=== PATIENT | male | born 1975 | race American Indian/Alaskan Native ===

== ENCOUNTER 2022-01-12 11:28 | Inpatient (IN) | payer SELFPAY ==
--- NOTE | 2022-01-12 12:20 | XRay Report ---
XR chest routine 2V INDICATION / CLINICAL INFORMATION: Chest Pain. COMPARISON: None available. FINDINGS: SUPPORT DEVICES: None. HEART /PULMONARY VASCULATURE: No significant abnormality. LUNGS / PLEURA: No significant pulmonary or pleural abnormality. No pneumothorax. ADDITIONAL FINDINGS: No significant additional findings. IMPRESSION: 1. No acute findings. Signer Name: Max Chavez MD Signed: 01/12/2022 12:16 PM Workstation Name: [facility]
[2022-01-12 12:58] LABS: Basophils % (Auto) 0.5 % (0.0-1.8); Eosinophils # (Auto) 0.1 K/mm3 (0.0-0.4); Hematocrit 42.1 % (35.5-45.6); Hemoglobin 14.4 gm/dl (11.8-15.2); Lymphocytes # (Auto) 2.3 K/mm3 (1.2-5.4); Lymphocytes % (Auto) 22.3 % (13.4-35.0); Mean Corpuscular HGB Conc 34 % (32-34); Mean Corpuscular Volume 91 fl (84-94); Monocytes # (Auto) 0.5 K/mm3 (0.0-0.8); Monocytes % (Auto) 5.2 % (0.0-7.3); Platelet Count 297 K/mm3 (140-440); Red Blood Count 4.64 M/mm3 (3.65-5.03); Red Cell Distribution Width 13.6 % (13.2-15.2)
[2022-01-12 13:26] LABS: Alanine Aminotransferase 18 units/L (7-56); BUN/Creatinine Ratio 14; Blood Urea Nitrogen 18 mg/dL (9-20); Calcium 9.6 mg/dL (8.4-10.2); Hemolysis Index 5
--- NOTE | 2022-01-12 13:36 | Event Note ---
ED Screening Note ED Screening Note: charge nurse Cindy aware of elevated trop This initial assessment/diagnostic orders/clinical plan/treatment(s) is/are subject to change based on patients health status, clinical progression and re- assessment by fellow clinical providers in the ED. Further treatment and workup at subsequent clinical providers discretion. Patient/guardian urged not to elope from the ED as their condition may be serious if not clinically assessed and managed. Initial orders include:
--- NOTE | 2022-01-12 13:36 | Event Note ---
Date: 01/12/22 Call received from Chelsea, garden labourer. This patient is in the waiting room and had protocol lab orders placed by triage nurse. Per her verbal report, pt's trop is 0.232. 13:31: I informed conveyor line battery charger, Cindy, of this. Pt will need to be immediately placed in the main ER for evaluation by a physician.
[2022-01-12 13:44] LABS: Chol/HDL Ratio 7.39 %; HDL Cholesterol 33 mg/dL (40-59); LDL Cholesterol,Direct 169 mg/dL (50-130)
[2022-01-12] MEDS ORDERED: SODIUM CHLORIDE 0.9% 1000 ML 1,000 ML IV ONE (13:57)
[2022-01-12] MEDS ORDERED: ASPIRIN 325 MG TAB PO ONE (13:57)
[2022-01-12] MEDS ORDERED: NITROGLYCERIN 2% OINT 1 GM TP ONE (13:57)
[2022-01-12] MEDS ORDERED: MORPHINE 4 MG/1 ML INJ IV ONE (13:58)
[2022-01-12] MEDS ORDERED: ONDANSETRON 4 MG/2 ML INJ IV ONE (13:58)
[2022-01-12 15:21] LABS: INR 0.8 (0.87-1.13)
--- NOTE | 2022-01-12 16:08 | History and Physical Report ---
History of Present Illness Chief complaint: My chest hurts History of present illness: 46 YO Male with DM, Obesity hypoventilation Syndrome, HLD, HTN, Metabolic Syndrome presents ED for evaluation. Patient reports "my chest hurts". Patient states he experienced a sudden onset of chest pain in approximately 100 hours this morning. Patient states that pain was 6/10, intermittent, nonradiating, substernal, crushing in nature, worsened with exertion, relieved with rest. EMS was notified and upon arrival the patient was found to be in distress and subsequently transported to [facility] for further care and evaluation of the aforementioned symptoms. The patient was seen and evaluated in the emergency department. All lab and imaging studies reviewed. Patient found to have clinical symptoms consistent with angina at rest, as well as lab finding consistent with NSTEMI, as well as diastolic CHF. Patient admitted to telemetry and initiated on ACS protocol. Cardiology team consulted in ED. Patient denies fever, chills, productive cough, skin rash, recent contact, unilateral leg swelling, calf pain, prolonged travel, individual/family history of DVT/PE/bleeding/blood clotting disorders, or known exposure to COVID-19. No prior admission for review. All medication listed at time of admission has been reconciled. Advanced care planning conducted in ED. Past History Past Medical History: diabetes, hypertension, hyperlipidemia, other (See HPI) Past Surgical History: No surgical history, Other (Reviewed) Social history: , lives with family Family history: diabetes, hypertension Medications and Allergies Allergies Allergy/AdvReac Type Severity Reaction Status Date / Time No Known Allergies Allergy Verified 01/12/22 11:55 Home Medications Medication Instructions Recorded Confirmed Last Taken Type Aspirin [Aspirin BABY CHEW TAB] 81 mg PO DAILY 07/07/14 07/07/14 Unknown History Atorvastatin [Lipitor] 0 mg PO DAILY 07/07/14 07/07/14 Unknown History labetaloL [Labetalol 100mg TAB] 0 mg PO DAILY 07/07/14 07/07/14 Unknown History metFORMIN [Glucophage] 0 mg PO DAILY 07/07/14 07/07/14 Unknown History Review of Systems Constitutional: no weight loss, no weight gain, no fever, no chills Ears, nose, mouth and throat: no ear pain, no ear discharge, no decreased hearing, no nose pain, no nasal discharge Cardiovascular: chest pain, dyspnea on exertion, high blood pressure, decreased exercise tolerance, no palpitations, no rapid/irregular heart beat Respiratory: no cough, no cough with sputum, no excessive sputum, no hemoptysis Gastrointestinal: no abdominal pain, no nausea, no vomiting, no diarrhea, no constipation Genitourinary Male: no hematuria, no flank pain, no discharge, no urinary frequency, no urinary hesitancy Rectal: no pain, no incontinence, no bleeding Musculoskeletal: no neck stiffness, no neck pain, no shooting arm pain, no arm numbness/tingling, no shooting leg pain, no leg numbness/tingling, no redness of joints Integumentary: no rash, no pruritis, no redness, no sores, no wounds Neurological: no head injury, no transient paralysis, no paralysis, no weakness, no parathesias, no numbness, no tingling Psychiatric: no anxiety, no memory loss, no change in sleep habits, no sleep disturbances, no insomnia, no hypersomnia, no change in appetite Endocrine: no cold intolerance, no heat intolerance, no polyphagia, no excessive thirst, no polydipsia, no polyuria Hematologic/Lymphatic: no easy bruising, no easy bleeding, no lymphedema Allergic/Immunologic: no urticaria, no allergic rhinitis, no wheezing, no persistent infections Exam - Constitutional Vitals: Temp Pulse Resp BP Pulse Ox 98.2 F 65 16 180/100 97 01/12/22 11:39 01/12/22 11:39 01/12/22 11:39 01/12/22 11:39 01/12/22 11:39 General appearance: Present: mild distress, obese - EENT Eyes: Present: PERRL ENT: hearing intact, clear oral mucosa - Neck Neck: Present: supple, normal ROM - Respiratory Respiratory effort: normal Respiratory: bilateral: CTA - Cardiovascular Heart Sounds: Present: S1 & S2. Absent: rub, click - Extremities Extremities: pulses symmetrical, No edema Peripheral Pulses: within normal limits - Abdominal General gastrointestinal: Present: soft, non-tender, non-distended, normal bowel sounds Male genitourinary: Present: normal - Integumentary Integumentary: Present: clear, warm, dry - Musculoskeletal Musculoskeletal: gait normal, strength equal bilaterally - Psychiatric Psychiatric: appropriate mood/affect, intact judgment & insight - Neurologic Neurologic: CNII-XII intact, moves all extremities HEART Score - HEART Score Troponin: Troponin T 0.232 ng/mL (0.00-0.029) H* 01/12/22 12:17 Results - Labs CBC & Chem 7: 01/12/22 12:17 01/12/22 12:17 Labs: Abnormal lab results 01/12/22 01/12/22 01/12/22 Range/Units 12:17 12:17 14:34 Seg Neutrophils % 71.0 H (40.0-70.0) % PT 12.1 L (12.2-14.9) Sec. INR 0.80 L (0.87-1.13) Sodium 132 L (137-145) mmol/L Chloride 96.3 L (98-107) mmol/L Glucose 391 H (75-100) mg/dL Troponin T 0.232 H* (0.00-0.029) ng/mL Triglycerides 391 H (2-149) mg/dL Cholesterol 244 H (50-199) mg/dL LDL Cholesterol Direct 169 H (50-130) mg/dL HDL Cholesterol 33 L (40-59) mg/dL Assessment and Plan - Patient Problems (1) NSTEMI (non-ST elevated myocardial infarction) Current Visit: Yes Status: Acute Plan to address problem: ACS protocol: Serial cardiac enzymes, EKG, telemetry monitoring, cardiology team consulted in ED, echocardiogram ordered and pending at time of admission, morphine, submental oxygen, nitro, aspirin, (2) Angina at rest Current Visit: Yes Status: Acute Plan to address problem: ACS protocol: Serial cardiac enzymes, EKG, telemetry monitoring, morphine, submental oxygen, nitro, aspirin, cardiology team consulted. Further care and evaluation as per cardiology team. (3) Diastolic CHF Current Visit: Yes Status: Acute Qualifiers: Heart failure chronicity: acute Qualified Code(s): I50.31 - Acute diastolic (congestive) heart failure Plan to address problem: Strict I's and O, monitoring output every shift, daily weight, afterload reduction, blood pressure control, echocardiogram ordered and pending at time of admission. (4) Obesity hypoventilation syndrome Current Visit: Yes Status: Acute Plan to address problem: Balanced diet, increase physical activity discharge, outpatient pulmonary follow -up for sleep study. (5) Hypertension Current Visit: Yes Status: Acute Qualifiers: Hypertension type: primary hypertension Qualified Code(s): I10 - Essential (primary) hypertension Plan to address problem: Monitor blood pressure every shift, continue medical management. (6) Diabetes Current Visit: Yes Status: Acute Plan to address problem: Consistent carbohydrate diet, Accu-Chek, insulin protocol, hypoglycemia protocol. (7) Metabolic syndrome Current Visit: Yes Status: Acute Plan to address problem: Balanced diet, low-cholesterol diet, weight reduction, blood glucose control, (8) DVT prophylaxis Current Visit: Yes Status: Acute Plan to address problem: SCDs bilateral lower extremities while in bed (9) Advance care planning Current Visit: Yes Status: Acute Plan to address problem: Disease education conducted, care plan discussed, diagnosis discussed, prognosis discussed, patient is full code. Patient knowledges understanding and agreement with care plan, +30 minutes. (10) Preventative health care Current Visit: Yes Status: Acute Plan to address problem: Patient counseled regarding weight reduction, risk factor reduction, outpatient follow-up with primary care physician for all age and risk factor appropriate screening test. +30 minutes.
[2022-01-12] MEDS ORDERED: NITROGLYCERIN 0.4 MG TAB SUBL SL PRN (16:09)
[2022-01-12] MEDS ORDERED: ASPIRIN 81 MG TAB CHEW PO STA (16:09)
[2022-01-12] MEDS ORDERED: MORPHINE 4 MG/1 ML INJ IV PRN (16:09)
[2022-01-12] MEDS ORDERED: ONDANSETRON 4 MG/2 ML INJ IV PRN (16:09)
[2022-01-12] MEDS ORDERED: traMADol 50 MG TAB PO PRN (16:09)
[2022-01-12] MEDS ORDERED: oxyCODONE /ACETAMINOPHEN 5-325MG TAB PO PRN (16:09)
[2022-01-12] MEDS ORDERED: ALBUTEROL 2.5 MG/3 ML NEBU IH PRN (16:09)
[2022-01-12] MEDS ORDERED: ACETAMINOPHEN 325 MG TAB PO PRN ×2 (16:09)
--- NOTE | 2022-01-12 16:11 | Emergency Department Report ---
ED Chest Pain HPI - General Chief Complaint: Chest Pain Stated Complaint: CHEST PAIN PUI?: No Time Seen by Provider: 01/12/22 13:55 Source: EMS Mode of arrival: Stretcher Limitations: No Limitations - History of Present Illness Initial Comments: pt reports chest pain since approx 1100 this morning. nonradiating, sternal, describes as achey. pt takes asa daily MD Complaint: chest pain -: Gradual, hour(s) Pain Radiation: none Severity scale (0 -10): 0 Improves With: nothing Worsens With: nothing Treatments Prior to Arrival: none - Related Data Home Medications Medication Instructions Recorded Confirmed Last Taken Aspirin [Aspirin BABY CHEW TAB] 81 mg PO DAILY 07/07/14 07/07/14 Unknown Atorvastatin [Lipitor] 0 mg PO DAILY 07/07/14 07/07/14 Unknown labetaloL [Labetalol 100mg TAB] 0 mg PO DAILY 07/07/14 07/07/14 Unknown metFORMIN [Glucophage] 0 mg PO DAILY 07/07/14 07/07/14 Unknown Allergies Allergy/AdvReac Type Severity Reaction Status Date / Time No Known Allergies Allergy Verified 01/12/22 11:55 Heart Score - HEART Score History: Moderately suspicious EKG: Significant ST-depression Age: < 45 Risk factors: > 3 risk factors or hx of atherosclerotic disease Troponin: 1-3x normal limit HEART Score: 6 - EKG Read Time Time EKG Completed: 16:11 EKG Read Time: 16:11 - Critical Actions Critical Actions: 4-6 pts:12-16.6% risk of adverse cardiac event. Should be admitted ED Review of Systems ROS: Stated complaint: CHEST PAIN Other details as noted in HPI Constitutional: denies: chills, fever Eyes: denies: eye pain, eye discharge, vision change ENT: denies: ear pain, throat pain Respiratory: denies: cough, shortness of breath, wheezing Cardiovascular: denies: chest pain, palpitations Endocrine: no symptoms reported Gastrointestinal: denies: abdominal pain, nausea, diarrhea Genitourinary: denies: urgency, dysuria Musculoskeletal: denies: back pain, joint swelling, arthralgia Skin: denies: rash, lesions Neurological: denies: headache, weakness, paresthesias Psychiatric: denies: anxiety, depression Hematological/Lymphatic: denies: easy bleeding, easy bruising ED Past Medical Hx - Past Medical History Hx Hypertension: Yes - Social History Smoking Status: Current Every Day Smoker Substance Use Type: None - Medications Home Medications: Home Medications Medication Instructions Recorded Confirmed Last Taken Type Aspirin [Aspirin BABY CHEW TAB] 81 mg PO DAILY 07/07/14 07/07/14 Unknown History Atorvastatin [Lipitor] 0 mg PO DAILY 07/07/14 07/07/14 Unknown History labetaloL [Labetalol 100mg TAB] 0 mg PO DAILY 07/07/14 07/07/14 Unknown History metFORMIN [Glucophage] 0 mg PO DAILY 07/07/14 07/07/14 Unknown History ED Physical Exam - General Limitations: No Limitations General appearance: alert, in no apparent distress - Head Head exam: Present: atraumatic, normocephalic - Eye Eye exam: Present: normal appearance - ENT ENT exam: Present: mucous membranes moist - Neck Neck exam: Present: normal inspection - Respiratory Respiratory exam: Present: normal lung sounds bilaterally. Absent: respiratory distress - Cardiovascular Cardiovascular Exam: Present: regular rate, normal rhythm. Absent: systolic murmur, diastolic murmur, rubs, gallop - GI/Abdominal GI/Abdominal exam: Present: soft, normal bowel sounds - Rectal Rectal exam: Present: deferred - Extremities Exam Extremities exam: Present: normal inspection - Back Exam Back exam: Present: normal inspection - Neurological Exam Neurological exam: Present: alert, oriented X3 - Psychiatric Psychiatric exam: Present: normal affect, normal mood - Skin Skin exam: Present: warm, dry, intact, normal color. Absent: rash ED Course Vital Signs 01/12/22 11:39 Temperature 98.2 F Pulse Rate 65 Respiratory 16 Rate Blood Pressure 180/100 [Left] O2 Sat by Pulse 97 Oximetry TELMA score - Telma Score Age > 65: (0) No Aspirin use within the Past 7 Days: (1) Yes 3 or more CAD Risk Factors: (1) Yes 2 or more Angina events in past 24 hrs: (0) No Known CAD with more than 50% Stenosis: (0) No Elevated Cardiac Markers: (1) Yes ST Deviation Greater than 0.5mm: (1) Yes TELMA Score: 4 ED Medical Decision Making - Lab Data Result diagrams: 01/12/22 12:17 01/12/22 12:17 - EKG Data -: EKG Interpreted by Ia EKG shows normal: sinus rhythm Rate: normal - EKG Data Interpretation: nonspecific ST-T wave leoncio - Radiology Data Radiology results: report reviewed, image reviewed - Medical Decision Making work up showed elevated trop 0.232 asprin and nitro given Critical care attestation.: If time is entered above; I have spent that time in minutes in the direct care of this critically ill patient, excluding procedure time. ED Disposition Clinical Impression: NSTEMI (non-ST elevated myocardial infarction), Chest pain Disposition: ADMITTED INPATIENT Is pt being admited?: Yes Does the pt Need Aspirin: Yes Condition: Stable Instructions: Nonspecific Chest Pain, Adult Referrals: PRIMARY CARE, [Primary Care Provider] - 3-5 Days
[2022-01-12 16:12] LABS: Creatine Kinase MB 8.6 ng/mL (0.0-4.0)
[2022-01-12] MEDS ORDERED: DEXTROSE 50% IN WATER (25GM) 50 ML SYRINGE IV PRN (16:13)
[2022-01-12] MEDS: INSULIN REGULAR, HUMAN 100 UNITS/1 ML SUB-Q SCH ×2 (16:43→22:00)
[2022-01-12 20:49] LABS: Bacteria,Urine 1+ /HPF (Negative); WBC,Urine < 1.0 /HPF (0.0-6.0)
[2022-01-12 20:55] LABS: Bilirubin,Urine Negative (Negative); Color,Urine Yellow (Yellow)
[2022-01-12 20:56] LABS: Blood,Urine Negative (Negative); Urobilinogen,Urine < 2.0 mg/dL (<2.0)
[2022-01-12 21:12] LABS: Amphetamine Screen,Urine PRESUMPTIVE NEGATIVE; Benzodiazepines Screen,Urine PRESUMPTIVE NEGATIVE; Cannabinoid Screen,Urine PRESUMPTIVE NEGATIVE; Cocaine Screen,Urine PRESUMPTIVE NEGATIVE; Methadone Screen,Urine PRESUMPTIVE NEGATIVE; Opiate Screen,Urine PRESUMPTIVE POSITIVE
[2022-01-12] MEDS: FAMOTIDINE 20 MG TAB PO SCH (22:00)
[2022-01-13] MEDS ORDERED: HEPARIN 10,000 UNITS/10 ML VIAL IV PRN (03:11)
[2022-01-13] MEDS ORDERED: HEPARIN 10,000 UNITS/10 ML VIAL IV ONE ×2 (03:11→03:20)
[2022-01-13] MEDS ORDERED: HEPARIN/ 0.45% NACL DRIP 25,000 UNIT/500 ML BAG IV SCH (04:00)
[2022-01-13 06:48] LABS: INR 0.84 (0.87-1.13)
[2022-01-13 06:49] LABS: Partial Thromboplastin Time 40.7 Sec. (24.2-36.6)
[2022-01-13 06:59] LABS: BUN/Creatinine Ratio 14; Blood Urea Nitrogen 17 mg/dL (9-20); Calcium 9.2 mg/dL (8.4-10.2); Hemolysis Index 41
[2022-01-13] MEDS: INSULIN REGULAR, HUMAN 100 UNITS/1 ML SUB-Q SCH ×4 (08:38→21:38)
[2022-01-13] MEDS: FAMOTIDINE 20 MG TAB PO SCH ×2 (10:26→21:37)
--- NOTE | 2022-01-13 10:31 | Consultation ---
History of Present Illness Consult date: 01/13/22 Consult reason: chest pain, elevated troponin History of present illness: Patient is a 46-year-old man with a history of coronary artery disease and chronic hypertension. He reports that 8 years ago, he underwent coronary stenting at [facility] for acute coronary syndrome, and since then has maintained follow-up with [facility]. The last time he saw them was about a year ago. Comorbidities include chronic tobacco abuse, continues to smoke cigarettes. He presents to the hospital at this time with chest pain. In the emergency room, his ECG was abnormal, demonstrated QS complexes of an old anterolateral infarct, but associated with a deep T wave inversions. Was admitted with a diagnosis of a non-ST elevation myocardial infarction, and cardiology consultation was requested for further management. Past History Past Medical History: CAD, diabetes, hypertension, hyperlipidemia, other (Tobacco abuse) Past Surgical History: No surgical history, PTCA Social history: , lives with family Family history: diabetes, hypertension Medications and Allergies Allergies Allergy/AdvReac Type Severity Reaction Status Date / Time No Known Allergies Allergy Verified 01/12/22 11:55 Home Medications Medication Instructions Recorded Confirmed Last Taken Type Aspirin [Aspirin BABY CHEW TAB] 81 mg PO DAILY 07/07/14 01/12/22 Unknown History Atorvastatin [Lipitor] 0 mg PO DAILY 07/07/14 01/12/22 Unknown History labetaloL [Labetalol 100mg TAB] 0 mg PO DAILY 07/07/14 01/12/22 Unknown History metFORMIN [Glucophage] 0 mg PO DAILY 07/07/14 01/12/22 Unknown History Losartan [Cozaar] 25 mg PO QDAY 01/12/22 01/12/22 Unknown History carvediloL [Coreg] 25 mg PO BID 01/12/22 01/12/22 Unknown History Active Meds: Active Medications Acetaminophen (Acetaminophen 325 Mg Tab) 650 mg PO Q6H PRN PRN Reason: Pain, Mild (1-3) Albuterol (Albuterol 2.5 Mg/3 Ml Nebu) 2.5 mg IH Q4HRT PRN PRN Reason: Shortness Of Breath Atorvastatin Calcium (Atorvastatin 40 Mg Tab) 40 mg PO QHS BERYL Last Admin: 01/12/22 22:00 Dose: Not Given Dextrose (Dextrose 50% In Water (25gm) 50 Ml Syringe) 50 ml IV Q30MIN PRN; Protocol PRN Reason: Hypoglycemia Famotidine (Famotidine 20 Mg Tab) 20 mg PO BID [facility] Last Admin: 01/13/22 10:26 Dose: 20 mg Heparin Sodium/Sodium Chloride (Heparin/ 0.45% Nacl-25,000 Unit/500 Ml) 25,000 unit in 500 mls @ 20 mls/hr IV TITRATE BERYL; Protocol Last Admin: 01/13/22 03:33 Dose: 1,000 units/hr, 20 mls/hr Sodium Chloride (Nacl 0.9% 500 Ml) 500 mls @ 50 mls/hr IV DIRECT BERYL Stop: 01/13/22 20:59 Insulin Human Regular (Insulin Regular, Human 100 Units/1 Ml) 0 units SUB-Q ACHS [facility]; Protocol Last Admin: 01/13/22 08:38 Dose: Not Given Morphine Sulfate (Morphine 4 Mg/1 Ml Inj) 2 mg IV Q8H PRN PRN Reason: Pain , Severe (7-10) Nitroglycerin (Nitroglycerin 0.4 Mg Tab Subl) 0.4 mg SL Q5M PRN PRN Reason: Chest Pain Ondansetron HCl (Ondansetron 4 Mg/2 Ml Inj) 4 mg IV Q8H PRN PRN Reason: Nausea And Vomiting Oxycodone/Acetaminophen (Oxycodone /Acetaminophen 5-325mg Tab) 1 tab PO Q16H PRN PRN Reason: Pain, Moderate (4-6) Sodium Chloride (Sodium Chloride 0.9% 10 Ml Flush Syringe) 10 ml IV BID [facility] Last Admin: 01/13/22 10:26 Dose: 10 ml Sodium Chloride (Sodium Chloride 0.9% 10 Ml Flush Syringe) 10 ml IV PRN PRN PRN Reason: LINE FLUSH Sodium Chloride (Sodium Chloride 0.9% 10 Ml Flush Syringe) 10 ml IV PRN PRN PRN Reason: LINE FLUSH Tramadol HCl (Tramadol 50 Mg Tab) 50 mg PO Q6H PRN PRN Reason: Pain, Moderate (4-6) Review of Systems Cardiovascular: chest pain, shortness of breath, no orthopnea, no palpitations, no rapid/irregular heart beat, no edema, no syncope, no lightheadedness Physical Examination Vital Signs Temp Pulse Resp BP Pulse Ox 98.2 F 65 16 180/100 97 01/12/22 11:39 01/12/22 11:39 01/12/22 11:39 01/12/22 11:39 01/12/22 11:39 General appearance: no acute distress HEENT: Positive: PERRL Neck: Positive: neck supple Cardiac: Positive: Reg Rate and Rhythm Lungs: Positive: Decreased Breath Sounds Neuro: Positive: Grossly Intact Abdomen: Positive: Soft Male genitourinary: Positive: deferred Skin: Positive: Clear Extremities: Absent: edema Results 01/12/22 12:17 01/13/22 05:46 Cardiac Enzymes 01/12/22 01/12/22 Range/Units 12:17 14:34 AST 17 (5-40) units/L CK-MB (CK-2) 8.6 H (0.0-4.0) ng/mL Coagulation 01/12/22 01/13/22 Range/Units 14:34 05:46 PT 12.1 L 12.7 (12.2-14.9) Sec. INR 0.80 L 0.84 L (0.87-1.13) APTT 40.7 H (24.2-36.6) Sec. Lipids 01/12/22 Range/Units 12:17 Triglycerides 391 H (2-149) mg/dL Cholesterol 244 H (50-199) mg/dL HDL Cholesterol 33 L (40-59) mg/dL Cholesterol/HDL Ratio 7.39 % CBC 01/12/22 Range/Units 12:17 WBC 10.2 (4.5-11.0) K/mm3 RBC 4.64 (3.65-5.03) M/mm3 Hgb 14.4 (11.8-15.2) gm/dl Hct 42.1 (35.5-45.6) % Plt Count 297 (140-440) K/mm3 Lymph # (Auto) 2.3 (1.2-5.4) K/mm3 Rooks # (Auto) 0.5 (0.0-0.8) K/mm3 Eos # (Auto) 0.1 (0.0-0.4) K/mm3 Baso # (Auto) 0.0 (0.0-0.1) K/mm3 Comprehensive Metabolic Panel 01/12/22 01/13/22 Range/Units 12:17 05:46 Sodium 132 L 139 D (137-145) mmol/L Potassium 3.9 4.0 (3.6-5.0) mmol/L Chloride 96.3 L 101.1 (98-107) mmol/L Carbon Dioxide 23 26 (22-30) mmol/L BUN 18 17 (9-20) mg/dL Creatinine 1.3 1.2 (0.8-1.3) mg/dL Glucose 391 H 215 H (75-100) mg/dL Calcium 9.6 9.2 (8.4-10.2) mg/dL AST 17 (5-40) units/L ALT 18 (7-56) units/L Alkaline Phosphatase 100 (35-129) units/L Total Protein 7.8 (6.3-8.2) g/dL Albumin 4.0 (3.9-5) g/dL EKG interpretations - Telemetry EKG Rhythm: Sinus Rhythm (With QS complexes in anterolateral leads, associated with T wave inversions) Assessment and Plan - Patient Problems (1) Non-ST elevation myocardial infarction (NSTEMI) Current Visit: Yes Status: Acute Plan to address problem: Patient with history of coronary artery disease, prior remote stenting, hypertension and chronic tobacco abuse, presents with chest pain, abnormal ECG and elevated cardiac enzymes non-ST elevation infarct. We will proceed with early invasive management, cardiac catheterization and coronary angiography. Risks and benefits discussed with the patient who consents to proceed.
[2022-01-13] MEDS ORDERED: SODIUM CHLORIDE 0.9% 500 ML 500 ML IV SCH (11:00)
--- NOTE | 2022-01-13 11:24 | Progress Note ---
Assessment and Plan Assessment and plan: 46 YO Male with DM, Obesity hypoventilation Syndrome, HLD, HTN, Metabolic Syndrome presents ED for evaluation of chest pain. Patient found to have clinical symptoms consistent with angina at rest, as well as lab finding consistent with NSTEMI, as well as diastolic CHF. Patient admitted to telemetry and initiated on ACS protocol. Cardiology team consulted in ED. ACS/NSTEMI Chest pain Acute diastolic heart failure Obesity hypoventilation syndrome Diabetes mellitus type 2 01/13/2022. Patient presented with chest pain and elevated troponin. EKG with no ST-T wave changes but likely NSTEMI. Cardiology consulted and awaiting evaluation. Continue to follow serial troponins and EKGs. Follow-up echocardiogram that was completed this morning. BNP mildly elevated at 805. Await cardiology recommendations with regards to ischemic evaluation. Continue Accu-Cheks and sliding scale insulin History Interval history: No new issues overnight Hospitalist Physical - Constitutional Vitals: Temp Pulse Resp BP Pulse Ox 98.3 F 101 H 25 H 91/58 98 01/12/22 23:07 01/13/22 08:40 01/13/22 08:40 01/13/22 08:40 01/13/22 08:40 General appearance: Present: mild distress, obese - EENT Eyes: Present: PERRL, EOM intact ENT: hearing intact, clear oral mucosa, dentition normal - Neck Neck: Present: supple, normal ROM - Respiratory Respiratory effort: normal Respiratory: bilateral: CTA - Cardiovascular Rhythm: regular Heart Sounds: Present: S1 & S2. Absent: gallop, rub - Extremities Extremities: no ischemia, No edema, Full ROM - Abdominal General gastrointestinal: soft, non-tender, non-distended, normal bowel sounds - Integumentary Integumentary: Present: clear, warm, dry - Neurologic Neurologic: CNII-XII intact, moves all extremities HEART Score - HEART Score EKG: Significant ST-depression Age: < 45 Risk factors: > 3 risk factors or hx of atherosclerotic disease Troponin: Troponin T 0.406 ng/mL (0.00-0.029) H* 01/12/22 23:53 Troponin: 1-3x normal limit - Critical Actions Critical Actions: 4-6 pts:12-16.6% risk of adverse cardiac event. Should be admitted Results - Labs CBC & Chem 7: 01/12/22 12:17 01/13/22 05:46 Labs: Laboratory Last Values WBC 10.2 K/mm3 (4.5-11.0) 01/12/22 12:17 RBC 4.64 M/mm3 (3.65-5.03) 01/12/22 12:17 Hgb 14.4 gm/dl (11.8-15.2) 01/12/22 12:17 Hct 42.1 % (35.5-45.6) 01/12/22 12:17 MCV 91 fl (84-94) 01/12/22 12:17 MCH 31 pg (28-32) 01/12/22 12:17 MCHC 34 % (32-34) 01/12/22 12:17 RDW 13.6 % (13.2-15.2) 01/12/22 12:17 Plt Count 297 K/mm3 (140-440) 01/12/22 12:17 Lymph % (Auto) 22.3 % (13.4-35.0) 01/12/22 12:17 Moore % (Auto) 5.2 % (0.0-7.3) 01/12/22 12:17 Eos % (Auto) 1.0 % (0.0-4.3) 01/12/22 12:17 Baso % (Auto) 0.5 % (0.0-1.8) 01/12/22 12:17 Lymph # (Auto) 2.3 K/mm3 (1.2-5.4) 01/12/22 12:17 Moore # (Auto) 0.5 K/mm3 (0.0-0.8) 01/12/22 12:17 Eos # (Auto) 0.1 K/mm3 (0.0-0.4) 01/12/22 12:17 Baso # (Auto) 0.0 K/mm3 (0.0-0.1) 01/12/22 12:17 Seg Neutrophils % 71.0 % (40.0-70.0) H 01/12/22 12:17 Seg Neutrophils # 7.2 K/mm3 (1.8-7.7) 01/12/22 12:17 PT 12.7 Sec. (12.2-14.9) 01/13/22 05:46 INR 0.84 (0.87-1.13) L 01/13/22 05:46 APTT 40.7 Sec. (24.2-36.6) H 01/13/22 05:46 Sodium 139 mmol/L (137-145) D 01/13/22 05:46 Potassium 4.0 mmol/L (3.6-5.0) 01/13/22 05:46 Chloride 101.1 mmol/L (98-107) 01/13/22 05:46 Carbon Dioxide 26 mmol/L (22-30) 01/13/22 05:46 Anion Gap 16 mmol/L 01/13/22 05:46 BUN 17 mg/dL (9-20) 01/13/22 05:46 Creatinine 1.2 mg/dL (0.8-1.3) 01/13/22 05:46 Estimated GFR > 60 ml/min 01/13/22 05:46 BUN/Creatinine Ratio 14 % 01/13/22 05:46 Glucose 215 mg/dL (75-100) H 01/13/22 05:46 POC Glucose 207 mg/dL (70-105) H 01/13/22 08:19 Calcium 9.2 mg/dL (8.4-10.2) 01/13/22 05:46 Total Bilirubin 0.30 mg/dL (0.1-1.2) 01/12/22 12:17 AST 17 units/L (5-40) 01/12/22 12:17 ALT 18 units/L (7-56) 01/12/22 12:17 Alkaline Phosphatase 100 units/L (35-129) 01/12/22 12:17 Total Creatine Kinase 193 units/L (55-170) H 01/12/22 14:34 Total Creatine Kinase 197 units/L (55-170) H 01/12/22 14:34 CK-MB (CK-2) 8.6 ng/mL (0.0-4.0) H 01/12/22 14:34 CK-MB (CK-2) Rel Index 4.3 (0-4) H 01/12/22 14:34 Troponin T 0.406 ng/mL (0.00-0.029) H* 01/12/22 23:53 NT-Pro-B Natriuret Pep 805.8 pg/mL (0-450) H 01/12/22 14:34 Total Protein 7.8 g/dL (6.3-8.2) 01/12/22 12:17 Albumin 4.0 g/dL (3.9-5) 01/12/22 12:17 Albumin/Globulin Ratio 1.1 % 01/12/22 12:17 Triglycerides 391 mg/dL (2-149) H 01/12/22 12:17 Cholesterol 244 mg/dL (50-199) H 01/12/22 12:17 LDL Cholesterol Direct 169 mg/dL (50-130) H 01/12/22 12:17 HDL Cholesterol 33 mg/dL (40-59) L 01/12/22 12:17 Cholesterol/HDL Ratio 7.39 % 01/12/22 12:17 Lipase 36 units/L (13-60) 01/12/22 14:34 Urine Color Yellow (Yellow) 01/12/22 20:22 Urine Turbidity Clear (Clear) 01/12/22 20: Urine pH 5.0 (5.0-7.0) 01/12/22 20:22 Ur Specific [place] 1.025 (1.003-1.030) 01/12/22 20:22 Urine Protein 30 mg/dl mg/dL (Negative) 01/12/22 20:22 Urine Glucose (UA) Trace mg/dL (Negative) 01/12/22 20: Urine Ketones Negative mg/dL (Negative) 01/12/22 20:22 Urine Blood Negative (Negative) 01/12/22 20:22 Urine Nitrite Negative (Negative) 01/12/22 20:22 Ur Reducing Substances Not Reportable 01/12/22 20: Urine Bilirubin Negative (Negative) 01/12/22 20:22 Urine Ictotest Not Reportable 01/12/22 20:22 Urine Urobilinogen < 2.0 mg/dL (<2.0) 01/12/22 20:22 Ur Leukocyte Esterase Negative (Negative) 01/12/22 20: Urine WBC (Auto) < 1.0 /HPF (0.0-6.0) 01/12/22 20:22 Urine RBC (Auto) 1.0 /HPF (0.0-6.0) 01/12/22 20:22 U Epithel Cells (Auto) < 1.0 /HPF (0-13.0) 01/12/22 20:22 Urine Bacteria (Auto) 1+ /HPF (Negative) 01/12/22 20:22 Urine Opiates Screen Presumptive positive 01/12/22 20:22 Urine Methadone Screen Presumptive negative 01/12/22 20:22 Ur Barbiturates Screen Presumptive negative 01/12/22 20:22 Ur Phencyclidine Scrn Presumptive negative 01/12/22 20:22 Ur Amphetamines Screen Presumptive negative 01/12/22 20:22 U Benzodiazepines Scrn Presumptive negative 01/12/22 20:22 Urine Cocaine Screen Presumptive negative 01/12/22 20:22 U Marijuana (THC) Screen Presumptive negative 01/12/22 20:22 Drugs of Abuse Note Disclamer 01/12/22 20:22 Collazo/IV: Voiding Method Urinal Active Medications - Current Medications Current Medications: Generic Name Dose Route Start Last Admin Trade Name Freq PRN Reason Stop Dose Admin Acetaminophen 650 mg 01/12/22 16:09 Acetaminophen 325 Mg Tab PO Q6H PRN Pain, Mild (1-3) Albuterol 2.5 mg 01/12/22 16:09 Albuterol 2.5 Mg/3 Ml Nebu IH Q4HRT PRN Shortness Of Breath Atorvastatin Calcium 40 mg 01/12/22 22:00 01/12/22 22:00 Atorvastatin 40 Mg Tab PO Not Given QHS BERYL Dextrose 50 ml 01/12/22 16:13 Dextrose 50% In Water (25gm) 50 Ml Syringe IV Q30MIN PRN Hypoglycemia Protocol Famotidine 20 mg 01/12/22 22:00 01/13/22 10:26 Famotidine 20 Mg Tab PO 20 mg BID BERYL Administration Heparin Sodium/Sodium Chloride 25,000 unit in 500 mls @ 20 mls/hr 01/13/22 04:00 01/13/22 03:33 Heparin/ 0.45% Nacl-25,000 Unit/500 Ml IV 1,000 units/hr TITRATE BERYL 20 mls/hr Administration Protocol 1,000 UNITS/HR Sodium Chloride 500 mls @ 50 mls/hr 01/13/22 11:00 Nacl 0.9% 500 Ml IV 01/13/22 20:59 DIRECT BERYL Insulin Human Regular 0 units 01/12/22 16:30 01/13/22 08:38 Insulin Regular, Human 100 Units/1 Ml SUB-Q Not Given ACHS [facility] Protocol Morphine Sulfate 2 mg 01/12/22 16:09 Morphine 4 Mg/1 Ml Inj IV Q8H PRN Pain , Severe (7-10) Nitroglycerin 0.4 mg 01/12/22 16:09 Nitroglycerin 0.4 Mg Tab Subl SL Q5M PRN Chest Pain Ondansetron HCl 4 mg 01/12/22 16:09 Ondansetron 4 Mg/2 Ml Inj IV Q8H PRN Nausea And Vomiting Oxycodone/Acetaminophen 1 tab 01/12/22 16:09 Oxycodone /Acetaminophen 5-325mg Tab PO Q16H PRN Pain, Moderate (4-6) Sodium Chloride 10 ml 01/12/22 22:00 01/13/22 10:26 Sodium Chloride 0.9% 10 Ml Flush Syringe IV 10 ml BID BERYL Administration Sodium Chloride 10 ml 01/12/22 16:09 Sodium Chloride 0.9% 10 Ml Flush Syringe IV PRN PRN LINE FLUSH Sodium Chloride 10 ml 01/12/22 16:09 Sodium Chloride 0.9% 10 Ml Flush Syringe IV PRN PRN LINE FLUSH Tramadol HCl 50 mg 01/12/22 16:09 Tramadol 50 Mg Tab PO Q6H PRN Pain, Moderate (4-6)
[2022-01-13] MEDS: HEPARIN 10,000 UNITS/10 ML VIAL ONE ×4 (11:59→13:46)
[2022-01-13] MEDS ORDERED: HEPARIN/NS 5000 UNIT/500ML 1,000 ML IR ONE (12:05)
[2022-01-13] MEDS ORDERED: NITROGLYCERIN SYRINGE 3 ML ONE (12:06)
[2022-01-13] MEDS ORDERED: SODIUM CHLORIDE 0.9% 1000 ML 1,000 ML ONE (12:17)
[2022-01-13] MEDS: MIDAZOLAM 2 MG/2 ML INJ ONE ×2 (12:28→12:57)
[2022-01-13] MEDS: fentaNYL 100 MCG/2 ML INJ ONE ×3 (12:28→13:12)
[2022-01-13] MEDS: VERAPAMIL 5 MG/2 ML INJ ONE ×2 (12:29→12:59)
[2022-01-13] MEDS ORDERED: CLOPIDOGREL 300 MG TAB ONE (13:50)
[2022-01-13] MEDS ORDERED: TIROFIBAN/NS 12,500 MCG/250 ML BAG IV ONE (13:53)
--- NOTE | 2022-01-13 14:14 | Event Note ---
Date: 01/13/22 Patient underwent cardiac catheterization, completed via the right radial approach. We found: Complete occlusion of the LAD in its mid segment, within the prior stent. We performed successful ad hoc angioplasty and stenting, with excellent angiographic result and bahai of TELMA-3 flow. See dictated report for details of intervention, and orders for guideline directed medical management.
[2022-01-13] MEDS ORDERED: SODIUM CHLORIDE 0.9% 1000 ML 1,000 ML IV SCH (15:00)
[2022-01-13] MEDS ORDERED: TIROFIBAN/NS 12,500 MCG/250 ML BAG IV SCH (15:30)
--- NOTE | 2022-01-13 15:35 | Cardiac Catherization Report ---
DATE OF SERVICE: 01/13/2022 REASON FOR PROCEDURE: Acute coronary syndrome, non-ST elevation myocardial infarction. PROCEDURES: 1. Left heart catheterization. 2. Selective left and right coronary angiography. 3. Coronary angioplasty and stenting of the mid left anterior descending artery. 4. Sedation time start 1257, end 1349. DESCRIPTION OF PROCEDURE: The patient was prepped and draped in a sterile fashion after informed consent. The right radial cath site was prepped and draped after negative Pedrito's test. The right radial artery was entered using Seldinger technique followed by placement of a 6-Wolof hydrophilic sheath. Routine radial cocktail was administered via the sheath. Selective left and right coronary angiography was performed using a #3.5 left Reanna and a #4 right Reanna. The angiograms were reviewed. CORONARY ANGIOGRAPHY: The left main coronary artery was free of significant disease. The left anterior descending artery contained a long previously stented segment of the mid vessel. The vessel was completely occluded within this stented segment. There was an appearance of severe in-stent restenosis, with possible additional thrombotic occlusion of the vessel in the proximal third of the stent. There was TELMA 0 antegrade flow down the LAD, with collateralization of the vessel also from the right coronary system. The circumflex artery and its obtuse marginal branches were free of significant disease. A small to medium size ramus intermedius artery contained mild irregularities. The right coronary artery was dominant. This vessel contained a long 50% stenosis of its mid segment, followed by diffuse [id number] atherosclerosis of the distal branches. As reported, there were collaterals to the LAD from the right coronary system via several septal perforators. CORONARY ANGIOPLASTY: After review of the angiograms, we commenced with ad hoc coronary intervention. We recognized the presence of chronic, severe restenosis with the presence of collaterals from the right coronary system. We selected a #3.5 XB guiding catheter and advanced it to the left coronary ostium. Using a [employer] 50 guidewire, we were able to successfully penetrate the completely occluded LAD within the stented segment, and transitioned the wire through the stent, and successfully into the distal LAD. Balloon angioplasty was performed within the occluded segment in the proximal third of the stent, which resulted in baptist of TELMA-3 flow. After baptist of flow, we found another focal severe restenosis of the distal third of the stent. A 3.0 x 8 mm drug-eluting stent was then deployed to the distal restenosis, inflated to optimal pressures with an excellent angiographic result. We then turned our attention to the proximal occlusive site, where we deployed a 3.5 x 15 mm drug-eluting stent. Additional post-dilatation was performed within the mid segment of the previous stent. After stent deployment and post-dilatation as described, there was an excellent angiographic result, 0 residual stenosis and baptist of TELMA-3 flow down the LAD. The procedure was well tolerated by the patient and there were no complications. The catheters and the wires were removed, sheath removed and hemostasis achieved using a TR band. The patient was returned to the postprocedure unit in stable condition. CONCLUSIONS: 1. The patient was admitted with acute coronary syndrome and non-ST elevation myocardial infarction. 2. There was 100% occlusion of the mid left anterior descending within the previous stented segment, consisting of chronic severe in-stent restenosis, with possible acute or subacute thrombosis. 3. Successful angioplasty and stenting with additional deployment of serial, 3.0-3.5 mm drug-eluting stents, deployed through the focal stenotic lesions in the proximal third and distal third of the previous stented segment. TID: [id number] RECEIPT: [id number] BREA/SERA RICHARDSD
[2022-01-13] MEDS: METOPROLOL TARTRATE 25 MG TAB PO SCH ×2 (17:30→21:38)
[2022-01-14 06:05] LABS: Basophils # (Auto) 0.1 K/mm3 (0.0-0.1); Basophils % (Auto) 0.9 % (0.0-1.8); Eosinophils # (Auto) 0.2 K/mm3 (0.0-0.4); Hematocrit 36.9 % (35.5-45.6); Hemoglobin 12.8 gm/dl (11.8-15.2); Lymphocytes # (Auto) 2.8 K/mm3 (1.2-5.4); Lymphocytes % (Auto) 30.5 % (13.4-35.0); Mean Corpuscular HGB Conc 35 % (32-34); Mean Corpuscular Volume 90 fl (84-94); Monocytes # (Auto) 0.6 K/mm3 (0.0-0.8); Monocytes % (Auto) 6.8 % (0.0-7.3); Platelet Count 261 K/mm3 (140-440); Red Blood Count 4.11 M/mm3 (3.65-5.03); Red Cell Distribution Width 13.6 % (13.2-15.2)
[2022-01-14 06:22] LABS: BUN/Creatinine Ratio 13; Blood Urea Nitrogen 14 mg/dL (9-20); Calcium 8.9 mg/dL (8.4-10.2); Hemolysis Index 4
[2022-01-14] MEDS: INSULIN REGULAR, HUMAN 100 UNITS/1 ML SUB-Q SCH ×4 (09:03→22:22)
[2022-01-14] MEDS: ASPIRIN EC 325 MG TAB PO SCH (09:08)
[2022-01-14] MEDS: METOPROLOL TARTRATE 25 MG TAB PO SCH ×2 (09:08→22:20)
[2022-01-14] MEDS: CLOPIDOGREL 75 MG TAB PO SCH (09:08)
[2022-01-14] MEDS: FAMOTIDINE 20 MG TAB PO SCH ×2 (09:09→22:20)
--- NOTE | 2022-01-14 09:24 | XRay Report ---
CHEST 1 VIEW 01/14/2022 8:32 AM INDICATION / CLINICAL INFORMATION: post pci. COMPARISON: 01/12/2022 FINDINGS: SUPPORT DEVICES: None. HEART / MEDIASTINUM: No significant abnormality. LUNGS / PLEURA: No significant pulmonary or pleural abnormality. No pneumothorax. ADDITIONAL FINDINGS: No significant additional findings. IMPRESSION: 1. No acute findings. Signer Name: Juarez Potter Jr, MD Signed: 01/14/2022 9:20 AM Workstation Name: [id number]
[2022-01-14] MEDS ORDERED: LISINOPRIL 5 MG TAB PO SCH (10:00)
--- NOTE | 2022-01-14 10:19 | Progress Note ---
Assessment and Plan Assessment and plan: 46 YO Male with DM, Obesity hypoventilation Syndrome, HLD, HTN, Metabolic Syndrome presents ED for evaluation of chest pain. Patient found to have clinical symptoms consistent with angina at rest, as well as lab finding consistent with NSTEMI, as well as diastolic CHF. Patient admitted to telemetry and initiated on ACS protocol. Cardiology team consulted in ED. ACS/NSTEMI Chest pain Acute diastolic heart failure Obesity hypoventilation syndrome Diabetes mellitus type 2 01/13/2022. Patient presented with chest pain and elevated troponin. EKG with no ST-T wave changes but likely NSTEMI. Cardiology consulted and awaiting evaluation. Continue to follow serial troponins and EKGs. Follow-up echocardiogram that was completed this morning. BNP mildly elevated at 805. Await cardiology recommendations with regards to ischemic evaluation. Continue Accu-Cheks and sliding scale insulin 01/14/2022. Cardiology reports patient underwent cardiac catheterization that revealed complete occlusion of the LAD in its mid segment within the prior stent. Cardiology performed successful ad hoc angioplasty and stenting with excellent angiographic result. Await cardiology recommendations with regards to discharge planning. Continue Accu-Cheks and sliding scale insulin History Interval history: No new issues overnight Hospitalist Physical - Constitutional Vitals: Temp Pulse Resp BP Pulse Ox 98.7 F 82 18 125/86 97 01/14/22 08:02 01/14/22 08:02 01/14/22 08:02 01/14/22 08:02 01/14/22 08:02 General appearance: Present: no acute distress - EENT Eyes: Present: PERRL, EOM intact ENT: hearing intact, clear oral mucosa, dentition normal - Neck Neck: Present: supple, normal ROM - Respiratory Respiratory effort: normal Respiratory: bilateral: CTA - Cardiovascular Rhythm: regular Heart Sounds: Present: S1 & S2. Absent: gallop, rub - Extremities Extremities: no ischemia, No edema, Full ROM - Abdominal General gastrointestinal: soft, non-tender, non-distended, normal bowel sounds - Integumentary Integumentary: Present: clear, warm, dry - Neurologic Neurologic: CNII-XII intact, moves all extremities HEART Score - HEART Score EKG: Significant ST-depression Age: < 45 Risk factors: > 3 risk factors or hx of atherosclerotic disease Troponin: Troponin T 0.502 ng/mL (0.00-0.029) H* D 01/14/22 05:43 Troponin: 1-3x normal limit - Critical Actions Critical Actions: 4-6 pts:12-16.6% risk of adverse cardiac event. Should be ad mitted Results - Labs CBC & Chem 7: 01/14/22 05:43 01/14/22 05:43 Labs: Laboratory Last Values WBC 9.1 K/mm3 (4.5-11.0) 01/14/22 05:43 RBC 4.11 M/mm3 (3.65-5.03) 01/14/22 05:43 Hgb 12.8 gm/dl (11.8-15.2) 01/14/22 05:43 Hct 36.9 % (35.5-45.6) 01/14/22 05:43 MCV 90 fl (84-94) 01/14/22 05:43 MCH 31 pg (28-32) 01/14/22 05:43 MCHC 35 % (32-34) H 01/14/22 05:43 RDW 13.6 % (13.2-15.2) 01/14/22 05:43 Plt Count 261 K/mm3 (140-440) 01/14/22 05:43 Lymph % (Auto) 30.5 % (13.4-35.0) 01/14/22 05:43 Elbert % (Auto) 6.8 % (0.0-7.3) 01/14/22 05:43 Eos % (Auto) 2.0 % (0.0-4.3) 01/14/22 05:43 Baso % (Auto) 0.9 % (0.0-1.8) 01/14/22 05:43 Lymph # (Auto) 2.8 K/mm3 (1.2-5.4) 01/14/22 05:43 Elbert # (Auto) 0.6 K/mm3 (0.0-0.8) 01/14/22 05:43 Eos # (Auto) 0.2 K/mm3 (0.0-0.4) 01/14/22 05:43 Baso # (Auto) 0.1 K/mm3 (0.0-0.1) 01/14/22 05:43 Seg Neutrophils % 59.8 % (40.0-70.0) 01/14/22 05:43 Seg Neutrophils # 5.5 K/mm3 (1.8-7.7) 01/14/22 05:43 PT 12.7 Sec. (12.2-14.9) 01/13/22 05:46 INR 0.84 (0.87-1.13) L 01/13/22 05:46 APTT 40.7 Sec. (24.2-36.6) H 01/13/22 05:46 Heparin Anti-Xa Level < 0.10 U.I./ml (0.3-0.7) L 01/13/22 11:33 Sodium 141 mmol/L (137-145) 01/14/22 05:43 Potassium 3.9 mmol/L (3.6-5.0) 01/14/22 05:43 Chloride 103.1 mmol/L (98-107) 01/14/22 05:43 Carbon Dioxide 25 mmol/L (22-30) 01/14/22 05:43 Anion Gap 17 mmol/L 01/14/22 05:43 BUN 14 mg/dL (9-20) 01/14/22 05:43 Creatinine 1.1 mg/dL (0.8-1.3) 01/14/22 05:43 Estimated GFR > 60 ml/min 01/14/22 05:43 BUN/Creatinine Ratio 13 % 01/14/22 05:43 Glucose 197 mg/dL (75-100) H 01/14/22 05:43 POC Glucose 209 mg/dL (70-105) H 01/14/22 08:00 Calcium 8.9 mg/dL (8.4-10.2) 01/14/22 05:43 Total Bilirubin 0.30 mg/dL (0.1-1.2) 01/12/22 12:17 AST 17 units/L (5-40) 01/12/22 12:17 ALT 18 units/L (7-56) 01/12/22 12:17 Alkaline Phosphatase 100 units/L (35-129) 01/12/22 12:17 Total Creatine Kinase 193 units/L (55-170) H 01/12/22 14:34 Total Creatine Kinase 197 units/L (55-170) H 01/12/22 14:34 CK-MB (CK-2) 8.6 ng/mL (0.0-4.0) H 01/12/22 14:34 CK-MB (CK-2) Rel Index 4.3 (0-4) H 01/12/22 14:34 Troponin T 0.502 ng/mL (0.00-0.029) H* D 01/14/22 05:43 NT-Pro-B Natriuret Pep 805.8 pg/mL (0-450) H 01/12/22 14:34 Total Protein 7.8 g/dL (6.3-8.2) 01/12/22 12:17 Albumin 4.0 g/dL (3.9-5) 01/12/22 12:17 Albumin/Globulin Ratio 1.1 % 01/12/22 12:17 Triglycerides 391 mg/dL (2-149) H 01/12/22 12:17 Cholesterol 244 mg/dL (50-199) H 01/12/22 12:17 LDL Cholesterol Direct 169 mg/dL (50-130) H 01/12/22 12:17 HDL Cholesterol 33 mg/dL (40-59) L 01/12/22 12:17 Cholesterol/HDL Ratio 7.39 % 01/12/22 12:17 Lipase 36 units/L (13-60) 01/12/22 14:34 Urine Color Yellow (Yellow) 01/12/22 20:22 Urine Turbidity Clear (Clear) 01/12/22 20:22 Urine pH 5.0 (5.0-7.0) 01/12/22 20:22 Ur Specific [place] 1.025 (1.003-1.030) 01/12/22 20:22 Urine Protein 30 mg/dl mg/dL (Negative) 01/12/22 20:22 Urine Glucose (UA) Trace mg/dL (Negative) 01/12/22 20:22 Urine Ketones Negative mg/dL (Negative) 01/12/22 20:22 Urine Blood Negative (Negative) 01/12/22 20: Urine Nitrite Negative (Negative) 01/12/22 20:22 Ur Reducing Substances Not Reportable 01/12/22 20:22 Urine Bilirubin Negative (Negative) 01/12/22 20:22 Urine Ictotest Not Reportable 01/12/22 20:22 Urine Urobilinogen < 2.0 mg/dL (<2.0) 01/12/22 20:22 Ur Leukocyte Esterase Negative (Negative) 01/12/22 20:22 Urine WBC (Auto) < 1.0 /HPF (0.0-6.0) 01/12/22 20:22 Urine RBC (Auto) 1.0 /HPF (0.0-6.0) 01/12/22 20:22 U Epithel Cells (Auto) < 1.0 /HPF (0-13.0) 01/12/22 20:22 Urine Bacteria (Auto) 1+ /HPF (Negative) 01/12/22 20:22 Urine Opiates Screen Presumptive positive 01/12/22 20:22 Urine Methadone Screen Presumptive negative 01/12/22 20:22 Ur Barbiturates Screen Presumptive negative 01/12/22 20:22 Ur Phencyclidine Scrn Presumptive negative 01/12/22 20:22 Ur Amphetamines Screen Presumptive negative 01/12/22 20:22 U Benzodiazepines Scrn Presumptive negative 01/12/22 20:22 Urine Cocaine Screen Presumptive negative 01/12/22 20:22 U Marijuana (THC) Screen Presumptive negative 01/12/22 20:22 Drugs of Abuse Note Disclamer 01/12/22 20:22 Collazo/IV: Voiding Method Urinal Active Medications - Current Medications Current Medications: Generic Name Dose Route Start Last Admin Trade Name Freq PRN Reason Stop Dose Admin Acetaminophen 650 mg 01/12/22 16:09 Acetaminophen 325 Mg Tab PO Q6H PRN Pain, Mild (1-3) Albuterol 2.5 mg 01/12/22 16:09 Albuterol 2.5 Mg/3 Ml Nebu IH Q4HRT PRN Shortness Of Breath Aspirin 325 mg 01/14/22 10:00 01/14/22 09:08 Aspirin Ec 325 Mg Tab PO 325 mg QDAY BERYL Administration Atorvastatin Calcium 40 mg 01/12/22 22:00 01/13/22 21:37 Atorvastatin 40 Mg Tab PO 40 mg QHS BERYL Administration Clopidogrel Bisulfate 75 mg 01/14/22 10:00 01/14/22 09:08 Clopidogrel 75 Mg Tab PO 75 mg QDAY BERYL Administration Dextrose 50 ml 01/12/22 16:13 Dextrose 50% In Water (25gm) 50 Ml Syringe IV Q30MIN PRN Hypoglycemia Protocol Famotidine 20 mg 01/12/22 22:00 01/14/22 09:09 Famotidine 20 Mg Tab PO 20 mg BID BERYL Administration Sodium Chloride 1,000 mls @ 100 mls/hr 01/13/22 15:00 Nacl 0.9% 1000 Ml IV 01/14/22 14:59 DIRECT BERYL Tirofiban/Sodium Chloride 12,500 mcg in 250 mls @ 18 mls/hr 01/13/22 15:30 01/14/22 09:01 Aggrastat Drip (12.5 Mg/250 Ml) IV 01/14/22 15:29 18 mls/hr DIRECT BERYL Administration Protocol Per Protocol Insulin Human Regular 0 units 01/12/22 16:30 01/14/22 09:03 Insulin Regular, Human 100 Units/1 Ml SUB-Q 3 units ACHS BERYL Administration Protocol Isosorbide Mononitrate 30 mg 01/13/22 15:00 01/14/22 09:05 Isosorbide Mononitrate Er 30 Mg Tab PO 30 mg QDAY BERYL Administration Lisinopril 2.5 mg 01/14/22 10:00 01/14/22 09:08 Lisinopril 5 Mg Tab PO 2.5 mg QDAY BERYL Administration Metoprolol Tartrate 25 mg 01/13/22 15:00 01/14/22 09:08 Metoprolol Tartrate 25 Mg Tab PO 25 mg BID BERYL Administration Morphine Sulfate 2 mg 01/12/22 16:09 Morphine 4 Mg/1 Ml Inj IV Q8H PRN Pain , Severe (7-10) Nitroglycerin 0.4 mg 01/12/22 16:09 Nitroglycerin 0.4 Mg Tab Subl SL Q5M PRN Chest Pain Ondansetron HCl 4 mg 01/12/22 16:09 Ondansetron 4 Mg/2 Ml Inj IV Q8H PRN Nausea And Vomiting Oxycodone/Acetaminophen 1 tab 01/12/22 16:09 Oxycodone /Acetaminophen 5-325mg Tab PO Q16H PRN Pain, Moderate (4-6) Sodium Chloride 10 ml 01/12/22 22:00 01/13/22 21:38 Sodium Chloride 0.9% 10 Ml Flush Syringe IV 10 ml BID BERYL Administration Sodium Chloride 10 ml 01/12/22 16:09 Sodium Chloride 0.9% 10 Ml Flush Syringe IV PRN PRN LINE FLUSH Sodium Chloride 10 ml 01/12/22 16:09 Sodium Chloride 0.9% 10 Ml Flush Syringe IV PRN PRN LINE FLUSH Tramadol HCl 50 mg 01/12/22 16:09 Tramadol 50 Mg Tab PO Q6H PRN Pain, Moderate (4-6)
--- NOTE | 2022-01-14 13:59 | Progress Note ---
Assessment and Plan - Patient Problems (1) Non-ST elevation myocardial infarction (NSTEMI) Current Visit: Yes Status: Acute Plan to address problem: Patient with history of coronary artery disease, prior remote stenting, hypertension and chronic tobacco abuse, presents with chest pain, abnormal ECG and elevated cardiac enzymes non-ST elevation infarct. Underwent cardiac catheterization and coronary intervention to the mid LAD occlusion as part of an early invasive ag feels and looks better. We will discontinue Aggrastat, continue other guideline directed medications including aspirin and Plavix. Anticipate discharge tomorrow morning. I have strongly recommended that the patient stop smoking. Subjective Date of service: 01/14/22 Principal diagnosis: Acute myocardial infarction Interval history: Patient is comfortable today no acute distress. His chest pain is relieved following the coronary intervention done yesterday. Objective Vital Signs Temp Pulse Resp BP Pulse Ox 01/14/22 12:04 98.7 F 67 18 134/79 97 01/14/22 08:02 98.7 F 82 18 125/86 97 01/14/22 05:00 88 18 98 01/14/22 03:42 99.5 F 86 16 146/96 96 01/13/22 23:14 99.1 F 80 18 142/91 98 01/13/22 21:38 86 130/77 01/13/22 21:00 78 01/13/22 19:53 98.9 F 86 18 130/77 99 01/13/22 17:30 60 151/102 01/13/22 17:00 63 16 160/95 99 01/13/22 16:45 62 156/105 100 01/13/22 16:30 65 162/109 98 01/13/22 16:15 60 151/102 100 01/13/22 16:00 61 158/106 99 01/13/22 15:43 98.7 F 62 18 154/99 98 - Physical Examination HEENT: Positive: PERRL Neck: Positive: neck supple Cardiac: Positive: Reg Rate and Rhythm Lungs: Positive: Decreased Breath Sounds Neuro: Positive: Grossly Intact Abdomen: Positive: Soft Skin: Positive: Clear Extremities: Absent: edema - Labs and Meds CBC 01/14/22 Range/Units 05:43 WBC 9.1 (4.5-11.0) K/mm3 RBC 4.11 (3.65-5.03) M/mm3 Hgb 12.8 (11.8-15.2) gm/dl Hct 36.9 (35.5-45.6) % Plt Count 261 (140-440) K/mm3 Lymph # (Auto) 2.8 (1.2-5.4) K/mm3 [place] # (Auto) 0.6 (0.0-0.8) K/mm3 Eos # (Auto) 0.2 (0.0-0.4) K/mm3 Baso # (Auto) 0.1 (0.0-0.1) K/mm3 Comprehensive Metabolic Panel 01/14/22 Range/Units 05:43 Sodium 141 (137-145) mmol/L Potassium 3.9 (3.6-5.0) mmol/L Chloride 103.1 (98-107) mmol/L Carbon Dioxide 25 (22-30) mmol/L BUN 14 (9-20) mg/dL Creatinine 1.1 (0.8-1.3) mg/dL Glucose 197 H (75-100) mg/dL Calcium 8.9 (8.4-10.2) mg/dL
[2022-01-14] MEDS: LISINOPRIL 5 MG TAB PO SCH (22:19)
[2022-01-15 06:24] LABS: Basophils % (Auto) 0.3 % (0.0-1.8); Eosinophils # (Auto) 0.2 K/mm3 (0.0-0.4); Hematocrit 35.7 % (35.5-45.6); Hemoglobin 12.3 gm/dl (11.8-15.2); Lymphocytes # (Auto) 3.2 K/mm3 (1.2-5.4); Lymphocytes % (Auto) 34.1 % (13.4-35.0); Mean Corpuscular HGB Conc 34 % (32-34); Mean Corpuscular Volume 90 fl (84-94); Monocytes # (Auto) 0.6 K/mm3 (0.0-0.8); Monocytes % (Auto) 6.9 % (0.0-7.3); Platelet Count 261 K/mm3 (140-440); Red Blood Count 3.98 M/mm3 (3.65-5.03); Red Cell Distribution Width 13.2 % (13.2-15.2)
[2022-01-15 06:36] LABS: BUN/Creatinine Ratio 8; Blood Urea Nitrogen 11 mg/dL (9-20); Calcium 8.9 mg/dL (8.4-10.2); Hemolysis Index 2
[2022-01-15] MEDS: INSULIN REGULAR, HUMAN 100 UNITS/1 ML SUB-Q SCH ×2 (09:04→12:39)
--- NOTE | 2022-01-15 09:19 | Discharge Summary ---
Providers - Providers Date of Admission: 01/12/22 16:09 Date of discharge: 01/15/22 Attending physician: LATONIA HENRIQUEZ 01/12/22 Consult to Cardiac Rehabilitation [CONS] Routine Reason For Exam: Phase I 01/12/22 16:09 Consult to Cardiology [CONS] Routine Consulting Provider: VIVIANA ALFONSO Reason For Exam: angina 01/12/22 16:36 Consult to Physician [CONS] Stat Comment: Consulting Provider: VIVIANA ALFONSO Physician Instructions: Reason For Exam: nstemi 01/13/22 Consult to Cardiac Rehabilitation [CONS] Routine Reason For Exam: post pci 01/14/22 11:13 Physical Therapy Evaluation and Treat [CONS] Routine Comment: PT eval and treat Reason For Exam: debility Primary care physician: SALES BROKER Hospitalization Reason for admission: NSTEMI Condition: Stable Hospital course: 46 YO Male with DM, Obesity hypoventilation Syndrome, HLD, HTN, Metabolic Syndrome presents ED for evaluation of chest pain. Patient found to have clinical symptoms consistent with angina at rest, as well as lab finding consistent with NSTEMI, as well as diastolic CHF. Patient admitted to telemetry and initiated on ACS protocol. Cardiology team consulted in ED. The patient was admitted with diagnosis below: ACS/NSTEMI Chest pain Acute diastolic heart failure Obesity hypoventilation syndrome Diabetes mellitus type 2 Tobacco abuse Hospital course: 01/13/2022. Patient presented with chest pain and elevated troponin. EKG with no ST-T wave changes but likely NSTEMI. Cardiology consulted and awaiting e valuation. Continue to follow serial troponins and EKGs. Follow-up echocardiogram that was completed this morning. BNP mildly elevated at 805. Await cardiology recommendations with regards to ischemic evaluation. Continue Accu-Cheks and sliding scale insulin 01/14/2022. Cardiology reports patient underwent cardiac catheterization that revealed complete occlusion of the LAD in its mid segment within the prior stent. Cardiology performed successful ad hoc angioplasty and stenting with excellent angiographic result. Await cardiology recommendations with regards to discharge planning. Continue Accu-Cheks and sliding scale insulin 01/15/2022. Cardiology discontinued Aggrastat yesterday and continued other guideline directed medications including aspirin and Plavix. Cardiology agrees with discharge today. Patient was strongly advised to quit smoking. Dedicated discharge time 32 minutes with Disposition: 01 HOME / SELF CARE / HOMELESS Final Discharge Diagnosis (Prints w/discharge instructions): ACS/NSTEMI. Chest pain. Acute diastolic heart failure. Obesity hypoventilation syndrome. Diabetes mellitus type 2. Tobacco abuse Core Measure Documentation - Palliative Care Palliative Care/ Comfort Measures: Not Applicable - Core Measures Any of the following diagnoses?: acute SC - Acute SC Discharge Requirements Aspirin at discharge: Yes VLADIMIR/ARB for LVSD if EF <40%: Yes Beta christopher at discharge: Yes Statin for LDL = or >100 mg/dl on DC: Yes Exam - Constitutional Vitals: Temp Pulse Resp BP Pulse Ox 98.6 F 70 18 134/82 94 01/15/22 08:11 01/15/22 08:11 01/15/22 08:11 01/15/22 08:11 01/15/22 08:11 General appearance: Present: no acute distress, well-nourished - EENT Eyes: Present: PERRL ENT: hearing intact, clear oral mucosa - Neck Neck: Present: supple, normal ROM - Respiratory Respiratory effort: normal Respiratory: bilateral: CTA - Cardiovascular Heart Sounds: Present: S1 & S2. Absent: rub, click - Extremities Extremities: pulses symmetrical, No edema Peripheral Pulses: within normal limits - Abdominal General gastrointestinal: Present: soft, non-tender, non-distended, normal bowel sounds Male genitourinary: Present: normal - Integumentary Integumentary: Present: clear, warm, dry - Musculoskeletal Musculoskeletal: gait normal, strength equal bilaterally - Psychiatric Psychiatric: appropriate mood/affect, intact judgment & insight - Neurologic Neurologic: CNII-XII intact, moves all extremities Plan Activity: advance as tolerated Weight Bearing Status: Weight Bear as Tolerated Diet: low fat, low cholesterol, low salt Follow up with: RASHMI WASHINGTON MD [Primary Care Provider] - 3-5 Days VIVIANA ALFONSO MD [Staff Physician] - 7 Days Prescriptions: Aspirin EC [Ecotrin] 325 mg PO QDAY #30 tablet ISOSORBIDE MONOnitrate [Imdur ER] 30 mg PO QDAY #30 tablet AtorvaSTATin [Lipitor] 40 mg PO QHS #30 tablet Metoprolol [Lopressor TAB] 50 mg PO BID #60 tablet Metformin HCl [metFORMIN] 1,000 mg PO BID #60 Clopidogrel [Plavix] 75 mg PO QDAY #30 tablet lisinopriL [Zestril TAB] 5 mg PO QDAY #30 tablet
[2022-01-15] MEDS: LISINOPRIL 5 MG TAB PO SCH (09:29)
[2022-01-15] MEDS: METOPROLOL TARTRATE 25 MG TAB PO SCH (09:29)
[2022-01-15] MEDS: CLOPIDOGREL 75 MG TAB PO SCH (09:29)
[2022-01-15] MEDS: FAMOTIDINE 20 MG TAB PO SCH (09:29)
[2022-01-15] MEDS: ASPIRIN EC 325 MG TAB PO SCH (09:30)
--- NOTE | 2022-01-15 13:13 | Progress Note ---
Assessment and Plan - Patient Problems (1) Non-ST elevation myocardial infarction (NSTEMI) Current Visit: Yes Status: Acute Plan to address problem: Patient with history of coronary artery disease, prior remote stenting, hypertension and chronic tobacco abuse, presents with chest pain, abnormal ECG and elevated cardiac enzymes non-ST elevation infarct. Underwent cardiac catheterization and coronary intervention to the mid LAD occlusion as part of an early invasive ag feels and looks better. We will discontinue Aggrastat, continue other guideline directed medications including aspirin and Plavix. Okay for cardiac discharge on medical therapy as previously outlined. Subjective Date of service: 01/15/22 Principal diagnosis: Acute myocardial infarction Interval history: Patient looks and feels comfortable, no further chest pain, no cardiac symptoms. Objective Vital Signs Temp Pulse Resp BP Pulse Ox 01/15/22 11:31 98.0 F 66 18 108/62 96 01/15/22 10:00 98 01/15/22 08:11 98.6 F 70 18 134/82 94 01/15/22 05:00 98 01/15/22 04:20 69 01/15/22 03:16 98.6 F 75 14 116/77 96 01/15/22 00:02 60 01/14/22 23:02 98.8 F 69 14 141/95 98 01/14/22 22:20 73 137/85 01/14/22 22:19 73 137/85 01/14/22 20:22 68 01/14/22 19:13 98.6 F 73 18 137/85 96 01/14/22 17:00 99 01/14/22 16:30 98.8 F 66 18 126/86 98 - Physical Examination HEENT: Positive: PERRL Neck: Positive: neck supple Cardiac: Positive: Reg Rate and Rhythm Lungs: Positive: Decreased Breath Sounds Neuro: Positive: Grossly Intact Abdomen: Positive: Soft Skin: Positive: Clear Extremities: Absent: edema - Labs and Meds CBC 01/15/22 Range/Units 04:55 WBC 9.3 (4.5-11.0) K/mm3 RBC 3.98 (3.65-5.03) M/mm3 Hgb 12.3 (11.8-15.2) gm/dl Hct 35.7 (35.5-45.6) % Plt Count 261 (140-440) K/mm3 Lymph # (Auto) 3.2 (1.2-5.4) K/mm3 [place] # (Auto) 0.6 (0.0-0.8) K/mm3 Eos # (Auto) 0.2 (0.0-0.4) K/mm3 Baso # (Auto) 0.0 (0.0-0.1) K/mm3 Comprehensive Metabolic Panel 01/15/22 Range/Units 04:55 Sodium 141 (137-145) mmol/L Potassium 3.5 L (3.6-5.0) mmol/L Chloride 103.8 (98-107) mmol/L Carbon Dioxide 26 (22-30) mmol/L BUN 11 (9-20) mg/dL Creatinine 1.3 (0.8-1.3) mg/dL Glucose 152 H (75-100) mg/dL Calcium 8.9 (8.4-10.2) mg/dL
[2022-01-15 13:30] VITALS: BP 130/78
--- NOTE | 2022-01-15 18:03 | Electrocardiograph Report ---
[facility] Test Date: 2022-01-12 Test Time: 11:50:26 Pat Name: LAWANDA CEVALLOS Department: Room: A466 Gender: M Butcherette: GP : 1975 Requested By: ED DOC Order Number: [id number] Reading MD: Gala Valenzuela Measurements Intervals [place] Rate: 74 P: 29 LA: 203 QRS: -21 QRSD: 78 T: 131 QT: 424 QTc: 471 Interpretive Statements Sinus rhythm Borderline prolonged LA interval Inferior infarct, old Anterior infarct, age indeterminate No previous ECG available for comparison Electronically Signed On 01-15-2022 18:03:33 EDT by Gala Valenzuela
--- NOTE | 2022-01-15 18:05 | Electrocardiograph Report ---
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
--- NOTE | 2022-01-15 18:10 | Electrocardiograph Report ---
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
--- NOTE | 2022-01-15 18:14 | Electrocardiograph Report ---
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
--- NOTE | 2022-01-15 18:25 | Electrocardiograph Report ---
[facility] Test Date: 2022-01-14 Test Time: 07:36:29 Pat Name: LAWANDA CEVALLOS Department: Room: A466 1 Gender: M Intranet Support: MARGRET : 1975 Requested By: GALA VALENZUELA Order Number: [id number] Reading MD: Gala Valenzuela Measurements Intervals [place] Rate: 80 P: 61 DE: 197 QRS: -3 QRSD: 81 T: 117 QT: 377 QTc: 435 Interpretive Statements Sinus rhythm T wave abnormality, consider lateral ischemia Compared to ECG 01/13/2022 10:40:39 No significant changes Electronically Signed On 01-15-2022 18:24:49 EDT by Gala Valenzuela
== END 2022-01-15 13:42 | disposition home or self-care (01) | DRG 246 ==
LOC: ED 11:28 → 4A 16:09
PROVIDERS: ADMIT Internal Medicine; ATTEND Hospitalist
PROC: 027034Z Dilation of Coronary Artery, One Artery with Drug-eluting Intraluminal Device, Percutaneous Approach (ICD-10-PCS; principal; 2022-01-13)
PROC: 4A023N7 Measurement of Cardiac Sampling and Pressure, Left Heart, Percutaneous Approach (ICD-10-PCS; 2022-01-13)
PROC: B2111ZZ Fluoroscopy of Multiple Coronary Arteries using Low Osmolar Contrast (ICD-10-PCS; 2022-01-13)
DX: I21.4 Non-ST elevation (NSTEMI) myocardial infarction (principal); I50.31 Acute diastolic (congestive) heart failure; E66.2 Morbid (severe) obesity with alveolar hypoventilation; F17.200 Nicotine dependence, unspecified, uncomplicated; E11.9 Type 2 diabetes mellitus without complications; I11.0 Hypertensive heart disease with heart failure; E88.81 Metabolic syndrome and other insulin resistance; Z83.3 Family history of diabetes mellitus; Z82.49 Family history of ischemic heart disease and other diseases of the circulatory system; I25.10 Atherosclerotic heart disease of native coronary artery without angina pectoris; Z79.84 Long term (current) use of oral hypoglycemic drugs; Z79.82 Long term (current) use of aspirin; Z68.26 Body mass index [BMI] 26.0-26.9, adult
CPT/HCPCS: 36415; 71045; 71046; 80048; 80053; 80061; 80307; 81001; 82550; 82553; 82962; 83690; 83880; 84484; 85025; 85520; 85610; 85730; 92928; 93005; 93306; 93458; 94640; 99406; G0378; J1815; J3490; Q9967; C1725; C1769; C1874; C1887; C1894; C8929; C9600; J1644; J2250; J2270; J2405; J3010; J3246; J7030; J7040

== ENCOUNTER 2022-03-02 08:32 | Emergency (ER) | payer SELFPAY ==
[2022-03-02 09:04] VITALS: BP 170/103
--- NOTE | 2022-03-02 09:46 | XRay Report ---
XR knee 3V RT INDICATION / CLINICAL INFORMATION: injury/pain. COMPARISON: None available. FINDINGS: BONES/JOINT(S): No acute fracture or subluxation. Moderate DJD in the knee with a small joint effusio n. No focal bone erosions or focal osteopenia to suggest inflammatory arthropathy. SOFT TISSUES: No significant abnormality. ADDITIONAL FINDINGS: None. Signer Name: Sin Perales MD Signed: 03/02/2022 9:41 AM Workstation Name: [facility]
[2022-03-02] MEDS ORDERED: IBUPROFEN 800 MG TAB PO ONE (12:57)
[2022-03-02] MEDS ORDERED: HYDROcodone/ACETAMINOPHEN 5-325 MG TAB PO ONE (12:57)
--- NOTE | 2022-03-02 13:02 | Emergency Department Report ---
ED Lower Extremity HPI - General Chief Complaint: Extremity Injury, Lower Stated Complaint: KNEE PAIN Time Seen by Provider: 03/02/22 12:01 Source: patient Mode of arrival: Ambulatory Limitations: No Limitations - History of Present Illness Initial Comments: Patient presents with 3 days of atraumatic right knee pain. Patient reports he woke up suddenly with sharp pain in his right knee, he denies fall or injury, pain is worse with bearing weight and improves with elevation and rest. He denies history of arthritis, gout, no prior surgery, injury. -: Gradual Injury: Knee: Right Place: home Severity: moderate Severity scale (0 -10): 10 Improves With: rest Worsens With: weight bearing, movement, palpation Context: other Associated Symptoms: swelling, unable to bear weight. denies: numbness, tingling, ambulatory - Related Data Previous Rx's Medication Instructions Recorded Last Taken Type Aspirin EC [Ecotrin] 325 mg PO QDAY #30 tablet 01/15/22 Unknown Rx AtorvaSTATin [Lipitor] 40 mg PO QHS #30 tablet 01/15/22 Unknown Rx Clopidogrel [Plavix] 75 mg PO QDAY #30 tablet 01/15/22 Unknown Rx ISOSORBIDE MONOnitrate [Imdur ER] 30 mg PO QDAY #30 tablet 01/15/22 Unknown Rx Metformin HCl [metFORMIN] 1,000 mg PO BID #60 01/15/22 Unknown Rx Metoprolol [Lopressor TAB] 50 mg PO BID #60 tablet 01/15/22 Unknown Rx lisinopriL [Zestril TAB] 5 mg PO QDAY #30 tablet 01/15/[address] (Nf) 50 mg PO BID PRN #25 03/02/22 Unknown Rx traMADoL [Ultram 50 MG tab] 50 mg PO Q6HR PRN #12 tablet 03/02/22 Unknown Rx Allergies Allergy/AdvReac Type Severity Reaction Status Date / Time No Known Allergies Allergy Verified 03/02/22 09:04 ED Review of Systems ROS: Stated complaint: KNEE PAIN Other details as noted in HPI Comment: All other systems reviewed and negative Constitutional: see HPI Respiratory: denies: cough, shortness of breath Cardiovascular: denies: chest pain, palpitations, dyspnea on exertion Endocrine: denies: excessive sweating, intolerance to cold, intolerance to heat Gastrointestinal: denies: abdominal pain, nausea, vomiting Genitourinary: denies: urgency, dysuria Musculoskeletal: joint swelling, arthralgia Skin: denies: rash Neurological: denies: headache, weakness, numbness, paresthesias Psychiatric: denies: anxiety, depression ED Past Medical Hx - Past Medical History Hx Hypertension: Yes Hx Congestive Heart Failure: No Hx Diabetes: Yes Hx Asthma: No Hx COPD: No - Social History Smoking Status: Current Every Day Smoker - Medications Home Medications: Home Medications Medication Instructions Recorded Confirmed Last Taken Type Aspirin EC [Ecotrin] 325 mg PO QDAY #30 tablet 01/15/22 Unknown Rx AtorvaSTATin [Lipitor] 40 mg PO QHS #30 tablet 01/15/22 Unknown Rx Clopidogrel [Plavix] 75 mg PO QDAY #30 tablet 01/15/22 Unknown Rx ISOSORBIDE MONOnitrate [Imdur ER] 30 mg PO QDAY #30 tablet 01/15/22 Unknown Rx Metformin HCl [metFORMIN] 1,000 mg PO BID #60 01/15/22 Unknown Rx Metoprolol [Lopressor TAB] 50 mg PO BID #60 tablet 01/15/22 Unknown Rx lisinopriL [Zestril TAB] 5 mg PO QDAY #30 tablet 01/15/[address] (Nf) 50 mg PO BID PRN #25 03/02/22 Unknown Rx traMADoL [Ultram 50 MG tab] 50 mg PO Q6HR PRN #12 tablet 03/02/22 Unknown Rx ED Physical Exam - General Limitations: No Limitations, Physical Limitation General appearance: alert, in no apparent distress - Head Head exam: Present: atraumatic - Eye Eye exam: Present: normal appearance, PERRL Pupils: Present: normal accommodation - ENT ENT exam: Present: normal exam, normal orophraynx - Neck Neck exam: Present: normal inspection - Respiratory Respiratory exam: Present: normal lung sounds bilaterally. Absent: respiratory distress - Cardiovascular Cardiovascular Exam: Present: regular rate, normal rhythm - GI/Abdominal GI/Abdominal exam: Present: soft. Absent: distended, tenderness - Extremities Exam Extremities exam: Present: tenderness, normal capillary refill, joint swelling, other (Tender right suprapatellar area, right medial aspect, pain with ROM. No obvious deformity, no effusion palpated. Cap refill sensation color intact.). Absent: full ROM - Back Exam Back exam: Present: normal inspection - Neurological Exam Neurological exam: Present: alert, oriented X3 - Psychiatric Psychiatric exam: Present: normal affect, normal mood ED Course Vital Signs 03/02/22 09:02 Temperature 98.5 F Pulse Rate 95 H Respiratory 18 Rate Blood Pressure 170/103 [Left] O2 Sat by Pulse 99 Oximetry ED Lower Extremity MDM - Radiology Data Radiology results: report reviewed, image reviewed [No acute findings, moderate DJD with trace effusion, no dislocation or fracture" . - Medical Decision Making Differential diagnosis includes fractures, dislocation, arthritis, gout, ligament injury, atraumatic right knee pain, worse with ambulating and improves with rest. X3 days. Patient is neurovascularly intact cap refill color sensation intact. X-ray reviewed, will treat for DJD as well as Ortho referral provided. Extremity immobilized, discharged home with rice therapy, NSAIDs Patient remained stable nontoxic-appearing, afebrile, ambulating steadily without assistance. Gone over ED findings with patient as well as plan for follow-up. Also discussed return precautions with patient, all questions and concerns addressed. Patient is stable to be discharged follow-up outpatient. Audio voice dictation device used, hence the chart might contain some dictation errors, mispronunciations, wrong spelling and wrong verbiage. Critical care attestation.: If time is entered above; I have spent that time in minutes in the direct care of this critically ill patient, excluding procedure time. ED Disposition Clinical Impression: Arthralgia of knee, right, DJD (degenerative joint disease) of knee, Hypertension Disposition: 01 HOME / SELF CARE / HOMELESS Is pt being admited?: No Does the pt Need Aspirin: No Condition: Stable Instructions: Acute Knee Pain, Adult, Hypertension (ED) Prescriptions: Diclofenac Dr (Nf) 50 mg PO BID PRN #25 PRN Reason: Pain , Severe (7-10) traMADoL [Ultram 50 MG tab] 50 mg PO Q6HR PRN #12 tablet PRN Reason: Pain Referrals: PRIMARY CAREMD [Primary Care Provider] - 3-5 Days INES ANN MD [Staff Physician] - 3-5 Days
== END 2022-03-02 13:32 | disposition home or self-care (01) ==
LOC: ED 08:32
DX: M17.11 Unilateral primary osteoarthritis, right knee (principal); M19.90 Unspecified osteoarthritis, unspecified site; I10 Essential (primary) hypertension; E11.9 Type 2 diabetes mellitus without complications; F17.200 Nicotine dependence, unspecified, uncomplicated; Z79.899 Other long term (current) drug therapy; Z79.82 Long term (current) use of aspirin
CPT/HCPCS: 99283